=== PATIENT | female | born 1980 | race Caucasian/White ===

== ENCOUNTER 2020-01-18 08:35 | Emergency (ER) | payer OTHER ==
[~2020-01-18] VITALS: Ht 165.1 cm; Wt 65.8 kg
[2020-01-18] MEDS ORDERED: BENADRYL25 MG PO (08:52)
== END 2020-01-18 09:47 | disposition home or self-care (01) ==
LOC: ER 08:35
DX: L23.7 Allergic contact dermatitis due to plants, except food (principal); Z87.891 Personal history of nicotine dependence
CPT/HCPCS: 96372; 99283-25; J3301; Q0163